=== PATIENT | male | born 1975 | race Caucasian/White ===

== ENCOUNTER 2017-09-29 14:26 | Emergency (ER) | payer MEDICAID, SELFPAY ==
[2017-09-29 14:27] VITALS: BP 140/81; PULSE 94; RESP 20; TEMP 36.9; O2SAT 100; BMI 33.0
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
--- NOTE | 2017-09-29 15:46 | ED.DEP ---
ED Disposition - Plan for ED Patient: Disposition: Home or Assisted Living Chief Complaint: Back Instructions: ED Sprain Strain Lumbar, ED Neck Back Pain General Prescriptions: Naproxen [Naprosyn] 500 mg PO BID PRN #20 tab Cyclobenzaprine [Flexeril] 10 mg PO TID PRN #20 tab PRN Reason: Muscle Spasm Referrals: Nick Hammond III, MD [Primary Care Provider] -
[2017-09-29] MEDS: Naproxen 500 MG Tablet PO (15:48)
[2017-09-29 15:52] VITALS: RESP 16
--- NOTE | 2017-09-29 15:53 | ED.RN ---
REVIEWED D/C INSTRUCTIONS, FOLLOW UP CARE, PRESCRIPTIONS, AND S/S THAT WOULD WARRANT A RETURN TO THE ED WITH PT. PT VERBALIZED AN UNDERSTANDING. AMBULATED OUT OF ED, GAIT STEADY.
== END 2017-09-29 15:53 | disposition home or self-care (01) ==
PROVIDERS: Emergency Provider Emergency Medicine; Family Provider Family Medicine; PCP Family Medicine
DX: S16.1XXA Strain of muscle, fascia and tendon at neck level, initial encounter (principal); S39.012A Strain of muscle, fascia and tendon of lower back, initial encounter; V59.50XA Passenger in pick-up truck or van injured in collision with unspecified motor vehicles in traffic accident, initial encounter; Y93.9 Activity, unspecified; Y92.9 Unspecified place or not applicable; Z72.0 Tobacco use
CPT/HCPCS: 99285

== ENCOUNTER 2018-07-05 00:51 | Emergency (ER) | payer MEDICAID, SELFPAY ==
[2018-07-05 00:53] VITALS: BP 157/88; PULSE 110; RESP 24; TEMP 36.7; O2SAT 98; BMI 29.5
--- NOTE | 2018-07-05 01:12 | EKG12_ITS ---
Test Reason : SUBSTANCE ABUSE Blood Pressure : / mmHG Vent. Rate : 098 BPM Atrial Rate : 098 BPM P-R Int : 128 ms QRS Dur : 090 ms QT Int : 336 ms P-R-T Axes : 077 017 048 degrees QTc Int : 428 ms Normal sinus rhythm Normal ECG Confirmed by IRA REGAN, ZORAN ([id number]), make up editor NORMA RAYGOZA ([id number]) on 07/07/2018 9:08:27 AM Referred By: PÉREZ Confirmed By:ZORAN ROTH MD
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
[2018-07-05 01:42] LABS: Absolute Lymphocyte Count 1.06 X10^3/ul (0.83-4.51); Absolute Neutrophil Count 12.1 X10^3/uL (2.0-7.7); Basophil# 0.03 X10^3/uL; Basophil% 0.2 % (0-1); Eosinophil# 0.03 X10^3/uL; Eosinophils% 0.2 % (0-5); Hematocrit 46.8 % (40-54); Hemoglobin 16.3 g/dl (13.0-16.5); Lymphocyte # 1.06 X10^3/ul (4.0); Lymphocyte % 7.5 % (19-41); Mean Corp Hgb Conc 34.8 g/gl (32-36); Mean Corpuscular Hgb 29.9 pg (27.0-32.0); Mean Corpuscular Volume 85.9 fL (80-94); Monocyte# 0.81 X10^3/uL; Monocyte% 5.7 % (0-10); Neutrophil # 12.14 X10^3/uL (2.7-7.7); Neutrophil % 86.2 % (47-70); POSITIVE COUNT NO; POSITIVE DIFFERENTIAL NO; POSITIVE MORPHOLOGY NO; Platelet Count 201 K/mm3 (150-450); RBC Distribution Width CV 13.9 % (11.6-14.6); RBC Distribution Width SD 43.2 fl (35.1-43.9); Red Blood Count 5.45 M/mm3 (4.6-6.2); White Blood Count 14.1 K/mm3 (4.4-11.0)
[2018-07-05 02:02] LABS: Anion Gap 11 (5-15); BUN 10 mg/dL (7-18); BUN/Creat Ratio 10.1 RATIO (10-20); Calcium,Total 9.3 mg/dL (8.5-10.1); Chloride 105 mmol/L (98-107); Creatinine, Serum 0.99 mg/dL (0.70-1.30); EST Glomerular Filtration Rate 89 mL/min (>60); Est Glom Filt Rate - Afr Amer 107 mL/min (>60); Estimated Creatinine Clearance 104.58 ml/min; Glucose 131 mg/dL (74-106); Potassium 3.7 mmol/L (3.5-5.1); Sodium Level 137 mmol/L (136-145)
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
--- NOTE | 2018-07-05 03:19 | ED.DEP ---
ED Disposition - Plan for ED Patient: Instructions: ED Drug Abuse General Referrals: Care Physician,No Primary [Primary Care Provider] -
[2018-07-05 03:23] VITALS: BP 148/76; RESP 16; O2SAT 99
== END 2018-07-05 03:28 | disposition home or self-care (01) ==
PROVIDERS: Emergency Provider Emergency Medicine
DX: F16.10 Hallucinogen abuse, uncomplicated (principal); R07.89 Other chest pain; R06.02 Shortness of breath
CPT/HCPCS: 71045; 80048; 84484; 85025; 93005; 99285; A4216

== ENCOUNTER → 2019-08-28 08:11 | Outpatient (CLI) | payer MEDICAID, SELFPAY ==
[2019-08-28 08:08] VITALS: BMI 29.5
--- NOTE | 2019-08-28 08:12 | RAD_ITS ---
STUDY: X-RAY - RIGHT HAND REASON FOR EXAM: Male, 43 years old. Pain, history of fracture TECHNIQUE: 3 view(s) of the hand. COMPARISON: None. FINDINGS: A fiberglass splint is noted along the distal ulna wrist and fifth finger to support a recently fractured distal fifth metacarpal. There is dorsal in relation at the fracture site and multiple fracture fragments are noted. The joint spaces are well-preserved. Follow-up is recommended to assure complete osseous union Normal radiocarpal articulation. Normal distal radioulnar joint. Normal visualized carpal bones. Normal carpal articulations Normal carpometacarpal articulation of the thumb. Normal second through fifth carpometacarpal joints. Normal remaining metacarpi. Normal metacarpophalangeal joint of the thumb. Normal interphalangeal joint of the thumb. Normal proximal and distal phalanges of the thumb. Normal metacarpophalangeal joints of the second through fifth fingers. Normal proximal and distal interphalangeal joints of the second through fifth fingers. Normal phalanges of the second through fifth fingers. The soft tissue structures are unremarkable. RAD/Hand Min 3 Views IMPRESSION: Fiberglass splint has been placed to support a recently fractured fifth metacarpal. Follow-up recommended to assure complete osseous union No other demonstrated fracture No joint space abnormality Electronically Signed: Jose Boyd MD at 8:28 EDT , Service support ,
== END ==
PROVIDERS: Referring Provider Physician Assistant; Visit Provider Physician Assistant
DX: M79.641 Pain in right hand (principal)
CPT/HCPCS: 73130

== ENCOUNTER 2019-08-30 09:11 | Day surgery (SDC) | payer MEDICAID, SELFPAY ==
[2019-08-28 08:08] VITALS: BMI 29.5
[2019-08-29 19:23] LABS: Probe Check PASS; Specimen Processing Control PASS
[2019-08-30] VITALS (8 sets, daily range): BP systolic 118–151; BP diastolic 64–88; PULSE 66–87; RESP 16–20; TEMP 36.8–36.9; O2SAT 93–100; BMI 28.4
[2019-08-30] MEDS: Lactated Ringers 1,000 ML 100 ML IV (10:20)
--- NOTE | 2019-08-30 11:40 | RAD_ITS ---
STUDY: X-RAY - RIGHT HAND REASON FOR EXAM: ORIF of fifth metacarpal fracture. TECHNIQUE: 4 intraoperative images of the hand. COMPARISON: Radiographs 08/28/2019. FINDINGS: There is an orthopedic plate and screws transfixing a fifth metacarpal fracture in anatomical alignment and position. 26.1 seconds of fluoroscopy time was used. Electronically Signed: Vazquez Peoples MD at 15:30 EDT Tel , Service support , RAD/Hand Min 3 Views
[2019-08-30] MEDS: Cefazolin 2 GM in 0.9% Normal Saline 100 ML IV (12:07)
--- NOTE | 2019-08-30 12:20 | HP.PCM_ITS ---
History and Physical I have re-examined the patient. There are no clinical changes since date of exam. We discussed the current risk associated COVID-19. While it is understood that there is a community spread of COVID 19 the risk of rosa elena COVID-19 while at [facility] is very low, however, the risk cannot be completely mitigated because of the community spread of the disease. We discussed in detail the risk of exposure to and or potential harm posed by the COVID-19 virus with having a surgery/procedure at this time versus the risk of delaying the surgery/procedure. Is not possible to know either the risk of delaying the surgery procedure or chance of getting an infection with perfect accuracy, but a joint decision was made to proceed at this time with a schedule surgery/procedure as indicated on the consent form. Patient was notified that we will need to comply with any screening or testing [facility] wishes to perform or that surgery may be delayed for any positive results. Intake Vital Signs 08/28/19 BMI 29.5 08/28/19 Height 5 ft 11 in 08/28/19 Weight: 205 lb 08/28/19 BMI 28.5 Intake Visit Reasons: Right hand Is patient in pain?: Yes Pain scale (1-10): 9 Allergies No Known Allergies Allergy (Verified 08/28/19 08:06) [facility] Surgical History (Updated 08/28/19 @ 08:07 by Cici Bunch) H/O cervical spine surgery (Acute) h/o carpal tunnel surgery (Acute) Social History (Updated 08/28/19 @ 08:53 by HELADIO Jay) Smoking Status: Current every day smoker HPI Right hand: Details: Parts of this documentation were recorded by a scribe, this documentation accurately reflects the service provided and the decisions made by me, HELADIO Jay 08/28/19 0804. CASUAL JAK is a 43 year old M here today for right hand fracture. Patient states that he was helping a friend move last Wednesday and fell down the stairs, hitting the wall. Patient went to urgent care the next day due to swelling and pain. Patient was told he has a 4th and 5th metacarpal fracture. He was placed into a splint which he has removed twice. He states that he continues to have swelling. He able to move his fingers. He has numbness into his 5th finger. Patient is taking tylenol for pain. ROS Musc Reports joint pain, Reports joint swelling, Reports numbness, Reports tingling Skin/Breast Reports system reviewed and no additional complaints, except as docu Neuro Yes system reviewed and no additional complaints, except as docu, Yes numbness, Yes tingling Ortho Exam Right Wrist/Hand Skin/Wound: Yes Swelling, Yes Ecchymosis, Yes nail intact, Yes capillary refill normal Sensation: Ulnar: I WRIST: Inspection of the right hand shows some generalized swelling primarily in the extensor surface of the metacarpal region. He does have evident tenderness on palpation of the fracture site. There is very obvious rotational changes of the finger fifth due to the metacarpal fracture. Patient does have intact sensation throughout the extremity and normal distal radial pulses and capillary refill. He does appear to have intact flexion extension of the finger although limited due to pain and swelling. Left Wrist/Hand Skin/Wound: Yes Swelling, Yes Ecchymosis Assessment & Plan Problems 1. Closed nondisplaced fracture of neck of fifth metacarpal bone of right hand, initial encounter S62.366A Plan Patient presents to the office today for follow-up for right hand fracture. Patient states that he fell down the stairs and hit his hand against the wall while he was falling. He went to the urgent care where he was diagnosed with a hand fracture and told to follow-up here. Radiographs taken today show evident fifth metacarpal neck fracture with minimal displacement and evident volar angulation. His physical exam however shows very evident malrotation of the finger. He is neurovascularly intact at this time. At this time we did discuss treatment options which include attempting closed reduction with casting here in office versus surgical intervention. Patient admits that he has taken the splint off several times and is having a lot of pain therefore do not feel that attempting closed reduction in office today is the best step for him. Patient agrees and does not want to have this pushed on today. He would like to proceed with surgical intervention. I did discuss with him that we will review his images tomorrow with the surgeon and will likely try and have this done this week as it is already been 1 week today from his injury. Risks and benefits of surgery were discussed with patient and all of his questions were answered to his satisfaction. Consent was signed in office today. Patient be notified by our office regarding surgery dates. He will not know the time of surgery until the day before. Patient be contacted [facility] surgery department for preanesthesia testing. Patient is to remain in the splint and continue to keep elevated and can ice. Continue with anti-inflammatory for inflammation/pain. Notify of any other concerns or complaints in the meantime. This note was generated with [employer] dictation software. It may contain incorrect words, spelling, and punctuation that were not noted in checking the note before signing. Orders Orders: Hand Min 3 Views Today M79.641 Coding Level of Care Code Off vis,new,level 3 Diagnoses Closed nondisplaced fracture of neck of fifth metacarpal bone of right hand, initial encounter S62.366A ??Encounter type: initial encounter ??Fracture type: closed ??Metacarpal location: neck ??Fracture alignment: nondisplaced
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
--- NOTE | 2019-08-30 12:22 | DCINST_ITS ---
Discharge Diet: No Restrictions - leave splint in place, follow up in 2 weeks, call with concerns Discharge Activity: May Not Drive May shower in (days): 1 Ice area for (Minutes): 20 - Every hour while awake. Weight Bearing Status: Weight bearing as tolerated Keep extremity elevated above heart level: Operative Extremity Call your doctor if your incision/area has: Continuous Slow Oozing, Sudden Increased Bleeding, Increased Pain/ Swelling, Increased Redness, Foul Smelling Discharge Call your doctor if you observe: Fever of 101 or Higher, Coldness, Increased Pain, Numbness or Tingling, Change in Color, Calf discomfort Allergies/Adverse Reactions: Allergies No Known Allergies Allergy (Verified 08/30/19 09:34) Medications to take at Discharge Oxycodone HCl/Acetaminophen [Percocet 5/325] 1 - 2 tab PO Q6H PRN PRN 5 Days #28 tab 08/30/19 The following prescriptions were given: Oxycodone HCl/Acetaminophen [Percocet 5/325] 1 - 2 tab PO Q6H PRN PRN 5 Days #28 tab PRN Reason: Pain Transmission Status: Received by [facility] Primary Care Physician: Nick Hammond III, MD [Primary Care Provider] - Test Results: Test results from this visit will be discussed in further detail at your follow- up appointment, if applicable. Please Follow Up With: Charmaine Grace, - [phone]
[2019-08-30] MEDS: Mupirocin Ointment 22gm Tube 1 APPLIC (12:34)
== END 2019-08-30 16:10 | disposition home or self-care (01) ==
LOC: SDC 09:13 → AC 09:14
PROVIDERS: Anesthesiology; PCP Family Medicine; Referring Provider Orthopaedic Surgery; Visit Provider Orthopaedic Surgery
PROC: (CPT 26615; principal; 2019-08-30 11:25)
DX: S62.366A Nondisplaced fracture of neck of fifth metacarpal bone, right hand, initial encounter for closed fracture (principal); Z11.59 Encounter for screening for other viral diseases; W10.9XXA Fall (on) (from) unspecified stairs and steps, initial encounter; Y93.9 Activity, unspecified; Y92.9 Unspecified place or not applicable
CPT/HCPCS: 01830; 26615; 73130; 76000; 87635; C1713; G2023; J7120; J2405; U0003

== ENCOUNTER → 2019-09-12 13:40 | Outpatient (CLI) | payer MEDICAID, SELFPAY ==
[2019-09-12 13:30] VITALS: BMI 28.4
--- NOTE | 2019-09-12 13:40 | RAD_ITS ---
STUDY: X-RAY - RIGHT HAND REASON FOR EXAM: Follow-up right fifth metacarpal fracture. TECHNIQUE: 3 view(s) of the hand. COMPARISON: Intraoperative images 08/30/2019. FINDINGS: Normal radiocarpal articulation. Normal distal radioulnar joint. Normal visualized carpal bones. Normal carpal articulations Normal carpometacarpal articulation of the thumb. Normal second through fifth carpometacarpal joints. There is an orthopedic plate and screws transfixing a fifth metacarpal fracture in anatomical alignment and position. Normal metacarpophalangeal joint of the thumb. Normal interphalangeal joint of the thumb. Normal proximal and distal phalanges of the thumb. Normal metacarpophalangeal joints of the second through fifth fingers. Normal proximal and distal interphalangeal joints of the second through fifth fingers. Normal phalanges of the second through fifth fingers. There is soft tissue swelling at the proximal lateral aspect of the hand. RAD/Hand Min 3 Views IMPRESSION: No interval change of ORIF of fifth metacarpal fracture. Electronically Signed: Vazquez Peoples MD at 10:40 EDT Tel , Service support ,
== END ==
PROVIDERS: PCP Family Medicine; Referring Provider Orthopaedic Surgery; Visit Provider Orthopaedic Surgery
DX: S62.306A Unspecified fracture of fifth metacarpal bone, right hand, initial encounter for closed fracture (principal); X58.XXXA Exposure to other specified factors, initial encounter
CPT/HCPCS: 73130

== ENCOUNTER → 2019-09-26 14:29 | Outpatient (CLI) | payer MEDICAID, SELFPAY ==
[2019-09-12 13:30] VITALS: BMI 28.4
--- NOTE | 2019-09-26 14:29 | RAD_ITS ---
STUDY: X-RAY - RIGHT HAND REASON FOR EXAM: Male, 44 years old. Persistent pain, known fracture TECHNIQUE: 3 view(s) of the hand. COMPARISON: 09/12/2019 FINDINGS: Normal radiocarpal articulation. Normal distal radioulnar joint. Normal visualized carpal bones. Normal carpal articulations Normal carpometacarpal articulation of the thumb. Normal second through fifth carpometacarpal joints. No significant interval change in the appearance of a previously described, surgically reduced fracture in the distal fifth metacarpal. Little significant healing has occurred. Alignment remains anatomic. Normal metacarpophalangeal joint of the thumb. Normal interphalangeal joint of the thumb. Normal proximal and distal phalanges of the thumb. Normal metacarpophalangeal joints of the second through fifth fingers. Normal proximal and distal interphalangeal joints of the second through fifth fingers. Normal phalanges of the second through fifth fingers. The soft tissue structures are unremarkable. RAD/Hand Min 3 Views IMPRESSION: No interval change Electronically Signed: Jose Boyd MD at 15:34 EDT , Service support ,
== END ==
PROVIDERS: PCP Family Medicine; Referring Provider Physician Assistant; Visit Provider Physician Assistant
DX: Z47.89 Encounter for other orthopedic aftercare (principal)
CPT/HCPCS: 73130

== ENCOUNTER → 2019-10-12 13:37 | Outpatient (CLI) | payer MEDICAID, SELFPAY ==
[2019-09-26 14:45] VITALS: BMI 28.4
--- NOTE | 2019-10-12 13:38 | RAD_ITS ---
STUDY: X-RAY - RIGHT HAND REASON FOR EXAM: Male, 44 years old. RECENT SURGERY- THEN HAD HAND SMASHED AT [place] TECHNIQUE: 3 view(s) of the hand. COMPARISON: Prior left hand radiographs of 08/27/2019 FINDINGS: Normal radiocarpal articulation. Normal distal radioulnar joint. Normal visualized carpal bones. Normal carpal articulations Normal carpometacarpal articulation of the thumb. Normal second through fifth carpometacarpal joints. Stable alignment of the comminuted fracture of the mid and distal fifth metacarpal repaired with plate and screw hardware. Increased callus at the fracture site. Normal metacarpophalangeal joint of the thumb. Normal interphalangeal joint of the thumb. Normal proximal and distal phalanges of the thumb. Normal metacarpophalangeal joints of the second through fifth fingers. Normal proximal and distal interphalangeal joints of the second through fifth fingers. Normal phalanges of the second through fifth fingers. The soft tissue structures are unremarkable. RAD/Hand Min 3 Views IMPRESSION: Healing well aligned comminuted fracture of the mid and distal fifth metacarpal repaired with plate and screw hardware. No untoward bone, joint or hardware findings. Electronically Signed: Pauly Brown MD at 19:16 EDT , Service support ,
== END ==
PROVIDERS: PCP Family Medicine; Referring Provider Physician Assistant; Visit Provider Physician Assistant
DX: Z47.89 Encounter for other orthopedic aftercare (principal)
CPT/HCPCS: 73130

== ENCOUNTER 2019-10-18 13:30 | Outpatient (RCR) | payer MEDICAID, SELFPAY ==
[2019-09-12 13:30] VITALS: BMI 28.4
--- NOTE | 2019-09-20 16:47 | HP.OTEVAL ---
Patient's Visit Information CASUAL Jameson BENEDICT is a 44 year old M, referred to Occupational Therapy by Dr. Charmaine Grace DO, with a diagnosis of s/p ORIF 5th metacarpal surgery. Date of Evaluation: 09/20/19 Occupational Therapist: Lakia Dugan - Subjective Pt reports 3 weeks post op today. Pt had follow up with Dr Grace last week and next follow up in September 26. Pt wore brace upon arrival. Pt reports it's possible he will have to undergo another surgery to correct the plate in is hand as it is sliding forward causing pinky finger to curl at rest. - ADLs Dressing: Button shirt Comments: wear Velcro shoes Fasteners: Buttons, Zippers Comments: Difficulty with these Eating: Cut food Comments: Unable with R hand- has been using L hand Comments: Bathes in tub seated down in Comments: No concerns Comments: Has been using L hand Comments: Spouse has been handling these- otherwise uses L hand Comments: Spouse does these Comments: Neighbor takes care of yardwork - Pain R pinky/ulnar side of hand 5 Pain Intensity Range: 10 - ROM Wrist: R ext 40 degrees, 45 degrees flex; L ext 50 degrees, 60 degrees flex MP: R 5th digit 40 degrees flexion PIP: R 5th digit 95 degrees flexion DIP: R 5th digit 90 flexion to 15 degrees from extension ROM Comments: BUE AROM WNL shoulder/elbow - Strength Porcelain Technician: R 18#, L 32# Lateral Pinch: R 16#, L 25# Tripod Pinch: R 9#, L 22# Tip-to-Tip Pinch: R 10#, L 22# Strength Comments: BUE grossly assessed 4/5. - Quick DASH-Disab of Arm,Shoulder& Hand Quick DASH Score: 75.0000 - Goals Goal:: Pt will be able to increase timber inspector/pinch strength by 5-10# in order to increase functional strength and IND with ADL tasks. Goal:: Pt will demo an increase in AROM of his R wrist ext/flex and 5th digit of MCP, PIP, DIP joints to increase his flexibility and to increase his IND with self care tasks. Goal:: Pt will report pain less than 3/10 with ADLs and PRE by d/c Goal:: Pt will be able to fasten zippers and buttons on clothing with use of AE PRN to increase IND with tasks by d/c. Goal:: Pt will be educated on energy conservation techniques prior to d/c for increased knowledge and safety when completing ADL tasks. Goal:: Pt will be able to hold/grasp utensils to feed self without dropping with R hand with use of AE PRN to increase IND with tasks - Rehabilitation General Assessment: Assessed ROM, timber inspector and strength this date. See details below. Rehabilitation Potential: Good - Anticipated Interventions A/AAROM/PROM, Strengthening, Scar Care, Modalities, Joint Protection/Energy Conservation, Fine Motor Coord/Gabriel, ADL Training, Education re Diagnosis, Education re Skin Care and Precautions, Education re Self Massage Techniques, Caregiver Training, Home Program - Visit Plan Frequency: 1-2x /Week Duration: 4-6 Weeks General Plan: Increase ROM, timber inspector, strength and functional use of R hand TEXT: Thank you for the opportunity to evaluate your patient. For Medicare and Medicare HMO plans, please review the plan of care and approve it. It will need to be FAXED BACK to us at [phone] for Medicare purposes. Please let me know if there are questions or concerns regarding this plan of care. Physician Signature: Date:
--- NOTE | 2020-02-07 08:19 | HP.OT.NRP ---
ALCIRA BENEDICT was seen in my office for initial evaluation on 09/20/19. The following Plan of Care was established for this patient: Initial Frequency: 1-2x /Week Initial Duration: 4-6 Weeks Plan: cont POC Anticipated Interventions: A/AAROM/PROM, Strengthening, Scar Care, Modalities, Joint Protection/Energy Conservation, Fine Motor Coord/Gabriel, ADL Training, Education re Diagnosis, Education re Skin Care and Precautions, Education re Self Massage Techniques, Caregiver Training, Home Program This patient was last seen in our office 10/18/19. Pertinent comments regarding their Occupational therapy will appear below: Pt was seen for 4 OT visits. pt cancelled last apt and has not rescheduled and due to time lapse in services pt d/c at this time. At this point I will be discontinuing this patient from occupational therapy. I would be happy to see this patient again in the future if found appropriate by the physician. Thank you! Sil Phillip, OTR/L, CHT
== END 2019-10-18 19:00 | disposition home or self-care (01) ==
LOC: OT 13:30
PROVIDERS: PCP Family Medicine; Referring Provider Orthopaedic Surgery; Visit Provider Orthopaedic Surgery
DX: Z98.890 Other specified postprocedural states (principal)
CPT/HCPCS: 97140; 97166; 97530

== ENCOUNTER 2020-01-31 11:17 | Day surgery (SDC) | payer MEDICAID, SELFPAY ==
[2019-11-10 09:29] VITALS: BMI 28.4
--- NOTE | 2020-01-31 01:00 | HP_ITS ---
I have re-examined the patient. There are no clinical changes since date of exam. Intake Intake Visit Reasons: RIGHT WRIST Is patient in pain?: Yes Allergies No Known Allergies Allergy (Verified 01/15/20 14:02) [facility] Surgical History (Updated 08/30/19 @ 12:[address] Charmaine Grace, DO) H/O cervical spine surgery (Acute) h/o carpal tunnel surgery (Acute) Social History (Updated 01/15/20 @ 16:02 by Arnav LEIJA, PA) Smoking Status: Current every day smoker HPI RIGHT WRIST: Details: Parts of this documentation were recorded by a scribe, this documentation accurately reflects the service provided and the decisions made by me, HELADIO Jay 01/15/20 [id number]. ALCIRA BENEDICT is a 44 year old M here today for s/p orif right fifth metacarpal DOS 08/30/19 - in pain feels like plate has moved in hand. Patient states that he was pouring a pot of coffee about 3-4 days ago, and he felt a pop and sharp pain. Since then he feels like the plate has shifted. He has increased pain currently and complains of tightness within his hand. Patient has swelling in his hand. He denies any recent xrays. [place] [facility] [place] pain, Reports joint swelling, Reports limited joint movement, Reports stiffness Skin/Breast Reports system reviewed and no additional complaints, except as docu Neuro Yes system reviewed and no additional complaints, except as docu Ortho Exam Right Wrist/Hand Skin/Wound: Yes healed, No Swelling, No Ecchymosis, Yes nail intact, Yes capillary refill normal Right Wrist: Yes ROM-Extension 0-60 and ROM-Flexion 0-80; no TTP Fracture site Sensation: Radial: I, Ulnar: I, Median: I WRIST: Inspection of the right hand shows no acute abnormalities. His incision has healed well with minimal scarring. There is no signs of inflammation or infection. Patient has no tenderness around the incision site. He is a little tenderness over the very distal aspect of the plate. He does have normal sensation throughout the extremity normal distal radial pulses. His range of motion of his fifth digit is very good he has full flexion in the DIP and the MCP joint and has almost full extension (lacking less than 10 degrees). Left Wrist/Hand Skin/Wound: No Swelling, No Ecchymosis Assessment & Plan Problems 1. Orthopedic aftercare Z47.89 Plan Patient presents the office today approximately 6 months out from ORIF of the right fifth metacarpal. Patient states that he has noticed that the plate is starting to feel like is rubbing more causing more discomfort. He states that his range of motion he feels is almost back to normal and that if the plate is removed he will feel a lot better. The plan was to wait approximately 6 months before removal of hardware and therefore at this point will discuss with surgeon and if okay will proceed with hardware removal of right fifth metacarpal. Risks and benefits of the surgery were discussed with patient including blood loss, blood clot, infection, neurovascular injury, failure of procedure, loss of limb loss of life from anesthesia. Patient is aware of these risks and consent was signed in office today. Patient given antimicrobial scrub to use the night before the morning of his surgery. He will be contacted by our office to set up the surgery date and then will be contacted by surgery partner for preanesthesia/surgical testing. Patient will also receive a Covid test approximate 72 hours prior to procedure. Patient has no other questions at this time. We will see patient postop. This note was generated with [employer] dictation software. It may contain incorrect words, spelling, and punctuation that were not noted in checking the note before signing. Orders Orders: Hand Min 3 Views Today M79.641 Coding Level of Care Code Off vis,est,level 3 Diagnoses Orthopedic aftercare Z47.89
[2020-01-31 11:56] VITALS: BP 128/65; PULSE 63; RESP 18; TEMP 36.8; O2SAT 97; BMI 30.2
[2020-01-31] MEDS: Lactated Ringers 1,000 ML 100 ML IV (12:11)
[2020-01-31] MEDS: Cefazolin 2 GM in 0.9% Normal Saline 100 ML IV (13:27)
--- NOTE | 2020-01-31 13:30 | RAD_ITS ---
STUDY: X-RAY - RIGHT HAND REASON FOR EXAM: Male, 44 years old. Removal of hardware. TECHNIQUE: 3 intraoperative digital documentation view(s) of the hand. COMPARISON: 01/15/2020 FINDINGS: 7 seconds of exposure time were utilized for a total DAP of 0.7933 cGy/cm2 and a Total Air Kerma of 0.0472 mGy. 3 digital documentation images show hardware removal complications. RAD/Hand Min 3 Views IMPRESSION: Intraoperative digital documentation images. Electronically Signed: Ganesh Lucero MD at 11:54 EST , Service support ,
--- NOTE | 2020-01-31 13:34 | DCINST_ITS ---
Discharge Diet: No Restrictions - leave splint in place, follow up in 2 weeks, call with concerns Discharge Activity: May Not Drive May shower in (days): 1 Ice area for (Minutes): 20 - Every hour while awake. Weight Bearing Status: Weight bearing as tolerated Keep extremity elevated above heart level: Operative Extremity Call your doctor if your incision/area has: Continuous Slow Oozing, Sudden Increased Bleeding, Increased Pain/ Swelling, Increased Redness, Foul Smelling Discharge Call your doctor if you observe: Fever of 101 or Higher, Coldness, Increased Pain, Numbness or Tingling, Change in Color, Calf discomfort Allergies/Adverse Reactions: Allergies No Known Allergies Allergy (Verified 01/31/20 11:55) Medications to take at Discharge acetaminophen 650 mg tablet,extended release 650 mg PO Q12H PRN #30 tab 09/14/19 ibuprofen 800 mg tablet 800 mg PO TID #60 tab 09/14/19 tramadol 50 mg tablet 50 mg PO Q6H PRN #20 tab 09/27/19 Risperidone 1 mg PO QHS 01/23/20 Ondansetron [Zofran] 8 mg PO Q8H PRN PRN #20 tab 01/31/20 Oxycodone HCl/Acetaminophen [Percocet 5/325] 1 - 2 tablet PO Q6H PRN PRN 5 Days #28 tablet 01/31/20 The following prescriptions were given: Oxycodone HCl/Acetaminophen [Percocet 5/325] 1 - 2 tablet PO Q6H PRN PRN 5 Days #28 tablet PRN Reason: Pain Transmission Status: Sent to [facility] Ondansetron [Zofran] 8 mg PO Q8H PRN PRN #20 tab PRN Reason: Nausea Transmission Status: Pending to [facility] Primary Care Physician: Nick Hammond III, MD [Primary Care Provider] - Test Results: Test results from this visit will be discussed in further detail at your follow- up appointment, if applicable. Please Follow Up With: Charmaine Grace, DO - [phone]
--- NOTE | 2020-01-31 13:35 | OP.PCM_ITS ---
Report of Operation Date of Procedure: 01/31/20 Pre-Operative Diagnosis: right fifth metacarpal painful hardware, tendon a dhesions Post-Operative Diagnosis: same Surgery/Procedure Performed:: right hand removal of hardware, tenolysis of fifth finger extensor tendons printing supplies sales representative: Arnav Kelley Type of Anesthesia:: General Estimated Blood Loss (mL): none Fluids Replaced: 1000ml lr Description of Procedure: Preop note Patient a 44-year-old male with known ORIF of his right fifth metacarpal. He is having some pain over the plate and would like the and is having little bit of tendon scarring on exam. Patient would like the plate removed as it is quite painful to him if he hits it. Risk benefits alternatives were discussed with patient. Risk empirically but not limited to blood loss, blood clot, infection, neurovascular, failure procedure, loss of life and loss of limb. Patient is aware of like proceed with right hand removal of hardware for repair as indicated tenolysis Operative note Patient seen and examined preoperative holding area. Right hand was marked. Patient brought to the operating placed supine on the operating table. Signed, anesthesia, antibiotics were ministered. The right hand was prepped and draped usual sterile technique with a tract around his upper arm. All bony promises well-padded SCDs placed on his bilateral lower extremity. We then marked out our incision for our removal of hardware at the site of his previous incision. Timeout performed the right arm was elevated segmented tourniquet trigger was raised to a pressure of 250 torr. We then used a 15 blade to cut through skin dissect down tenotomies through the extensor tendons which were quite adhered and adhesed to the plate. We then remove these the adhesions and there entirely circumferentially around the tendons making sure to protect all neurovascular structures at all times. We then were able to visualize the plate we gently debrided any bony debris off of the plate removed all of the screws and the plate in sequential fashion. We then debrided the holes. There was no signs of infection there is no patient Rebetol fluoroscopy images he had a well-healed fifth metacarpal bone. The incision with copious was irrigated copious nonsterile saline. Please note that we used fluoroscopy to confirm that we removed all hardware from his hand. Again no signs of infection, well-healed on imaging in AP and lateral and oblique planes as well. We closed the skin with 4-0 Vicryl in a running 4 Monocryl sterile dressings were applied and a ulnar gutter splint was applied to his right upper extremity. Patient taught procedure well no complication child recovery room in stable condition. Please note the prior the entry was deflated after sterile dressings were applied. Postoperative note Percocet Nonweightbearing right arm Follow-up in 2 weeks Call with increased pain numbness tingling further issues arise Take Intra-Op pictures after all the hardware was removed as well as fluoroscopy images This note was generated with [employer] dictation software. It may contain incorrect words, spelling, and punctuation that were not noted in checking the note before signing.
[2020-01-31] MEDS: Mupirocin Ointment 22gm Tube 1 APPLIC (14:30)
[2020-01-31 14:39] VITALS: BP 128/64; BP 141/87; PULSE 82; RESP 16; TEMP 36.4; O2SAT 100
[2020-01-31 14:50] VITALS: BP 128/64; BP 136/82; PULSE 79; RESP 18; O2SAT 100
[2020-01-31 15:00] VITALS: BP 124/80; BP 128/64; PULSE 71; RESP 18; O2SAT 100
[2020-01-31 15:09] VITALS: BP 125/74; BP 128/64; PULSE 75; RESP 18; TEMP 36.9; O2SAT 100
[2020-01-31 15:35] VITALS: BP 128/64; BP 137/67; PULSE 73; RESP 16; TEMP 36.9; O2SAT 98
== END 2020-01-31 15:45 | disposition home or self-care (01) ==
LOC: SDC 11:18 → AC 11:19
PROVIDERS: PCP Family Medicine; Referring Provider Orthopaedic Surgery; Visit Provider Orthopaedic Surgery
PROC: (CPT 20680; principal; 2020-01-31 13:15)
DX: T84.84XA Pain due to internal orthopedic prosthetic devices, implants and grafts, initial encounter (principal); Y83.1 Surgical operation with implant of artificial internal device as the cause of abnormal reaction of the patient, or of later complication, without mention of misadventure at the time of the procedure; F12.90 Cannabis use, unspecified, uncomplicated; F31.9 Bipolar disorder, unspecified; F17.210 Nicotine dependence, cigarettes, uncomplicated; Z20.828 Contact with and (suspected) exposure to other viral communicable diseases
CPT/HCPCS: 01830; 20680; 73130; 76000; 87426; C9803; J7120; J2405

== ENCOUNTER 2020-04-27 19:02 | Emergency (ER) | payer MEDICAID, SELFPAY ==
[2020-04-27 19:03] VITALS: BP 126/79; PULSE 84; RESP 18; TEMP 36.4; O2SAT 98; BMI 29.0
--- NOTE | 2020-04-27 19:33 | ED.VISSUMM ---
- ER Visit Summary Date of Service: 04/27/20 Chief Complaint: Suicidal ideation History of Present Illness: The patient is a 44 M presenting with police for suicidal ideation. Patient states he was upset and very stressed out. He made comments to his that he wanted to end his life. He has had multiple family members over the last several years. He found his mother 8 years ago. He states he has had problems since then. His son committed suicide in 2019. He has a remote history of suicide attempt. Per police, his stated that he attempted to put a knife to his throat last week so she had to remove all the knives from the house. Per police, fears that his episodes are going to lead to him committing violent acts towards himself, her, or others. Patient admits to marijuana use, denies other drug use. Physical Examination: Vitals are stable. Patient is afebrile. Alert no acute distress. HEENT exam is unremarkable. Neck is supple. Lungs are clear and equal bilaterally. Heart is regular rate and rhythm. Abdomen is soft nontender nondistended. Extremities are unremarkable. Skin is warm and dry. Depressed affect, suicidal ideation Remainder of exam is unremarkable. Emergency Department Course and Treatment: CBC, chemistries unremarkable. Tox positive for cannabinoids. Alcohol negative. Covid negative. Discussed with counseling center for evaluation. Disposition: Per counseling center Impression: Suicidal ideation This note was generated with [employer] dictation software. It may contain incorrect words, spelling, and punctuation that were not noted in review of the chart prior to signing ED Disposition - Plan for ED Patient: Referrals: Nick Hammond III, MD [Primary Care Provider] -
[2020-04-27 19:50] LABS: Absolute Lymphocyte Count 1.96 X10^3/uL (0.83-4.51); Absolute Neutrophil Count 3.3 X10^3/uL (2.0-7.7); Basophil# 0.06 X10^3/uL; Eosinophils% 1.6 % (0-5); Hemoglobin 15.7 g/dL (13.0-16.5); Lymphocyte # 1.96 X10^3/ul (4.0); Lymphocyte % 31.9 % (19-41); Mean Corp Hgb Conc 34.1 g/dL (32-36); Mean Corpuscular Hgb 30.3 pg (27.0-32.0); Mean Corpuscular Volume 88.6 fL (80-94); Mean Platelet Vol. 11.3 fl (6.2-12.0); Monocyte# 0.75 X10^3/uL; Monocyte% 12.2 % (0-10); NRBC Flagged by Analyzer 0 % (0-5); Neutrophil # 3.27 X10^3/uL (2.7-7.7); Neutrophil % 53.1 % (47-70); Platelet Count 212 K/mm3 (150-450); RBC Distribution Width CV 13.4 % (11.6-14.6); RBC Distribution Width SD 43.6 fl (35.1-43.9); Red Blood Count 5.19 M/mm3 (4.6-6.2); White Blood Count 6.2 K/mm3 (4.4-11.0)
--- NOTE | 2020-04-27 19:53 | NURSING ---
called in with update on plan.
[2020-04-27 20:05] LABS: Anion Gap 4 (5-15); BUN 16 mg/dL (7-18); BUN/Creat Ratio 19.3 RATIO (10-20); Calcium,Total 8.7 mg/dL (8.5-10.1); Chloride 110 mmol/L (98-107); Creatinine, Serum 0.83 mg/dL (0.70-1.30); EST Glomerular Filtration Rate 107 mL/min (>60); Est Glom Filt Rate - Afr Amer 130 mL/min (>60); Estimated Creatinine Clearance 122.22 ml/min; Glucose 106 mg/dL (74-106); Potassium 3.7 mmol/L (3.5-5.1); Sodium Level 141 mmol/L (136-145)
[2020-04-27 20:07] LABS: Amphetamine Urine VISTA NEGATIVE (<1000 ng/mL); Barbiturate Urine VISTA NEGATIVE (< 200 ng/mL); Benzodiazepine Urine VISTA NEGATIVE (< 200 ng/mL); Cocaine Urine VISTA NEGATIVE (< 300 ng/mL); Ecstacy Urine VISTA NEGATIVE (< 500 ng/mL); Methadone Urine VISTA NEGATIVE (< 300 ng/mL); PCP Urine VISTA NEGATIVE (< 25 ng/mL); THC Urine VISTA POSITIVE (< 50 ng/mL); Vista UDS pH Range 7
[2020-04-27 20:08] VITALS: RESP 17
--- NOTE | 2020-04-27 20:29 | NURSING ---
called crisis at 2028
[2020-04-27 21:00] VITALS: RESP 17
[2020-04-27 22:00] VITALS: RESP 16
[2020-04-27 23:00] VITALS: RESP 17
[2020-04-28] VITALS: RESP 17
[2020-04-28 01:00] VITALS: RESP 18
[2020-04-28 02:00] VITALS: BP 146/89; PULSE 81; RESP 18; O2SAT 98
--- NOTE | 2020-04-28 02:14 | NURSING ---
updated on plan
[2020-04-28 03:09] VITALS: O2SAT 99
== END 2020-04-28 03:10 ==
PROVIDERS: Emergency Provider Emergency Medicine; PCP Family Medicine
DX: R45.851 Suicidal ideations (principal); Z91.5 Personal history of self-harm
CPT/HCPCS: 80048; 80307; 82077; 85025; 87426; 99285

== ENCOUNTER 2024-02-13 23:07 | Emergency (ER) | payer MEDICAID, SELFPAY ==
[2024-02-13 23:07] VITALS: BP 134/87; PULSE 92; RESP 18; TEMP 36.8; O2SAT 98; BMI 29.0
--- NOTE | 2024-02-14 01:57 | EDS_ITS ---
HPI History of Present Illness Chief Complaint: Mental Health Informant: patient, EMS and police/shake backboard notcher Narrative Narrative: Patient is a 48-year-old male with past medical history of bipolar disorder schizoaffective disorder as well as restless leg syndrome. This evening he got into an argument with his and during this time stated that he wanted to hurt himself. Secondary to this statement his called 911 and police showed up at the residence. The patient informed police that he did state what his is saying but that it was done out of anger and he has no homicidal or suicidal ideation at this time. He also reports that he believes he blacked out because he remembers he was inside arguing and then was suddenly outside and he does not remember how he got there. He states he was informed that his medications may need adjusted and therefore was advised to come to the hospital for evaluation. Secondary to this recommendation patient presents to the emergency department 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 Cervical spine fracture Epiglottitis Neuropathy IBS (irritable bowel syndrome) Hearing problem COPD (chronic obstructive pulmonary disease) Carpal tunnel syndrome Back problem Arthritis Seasonal allergies Home Medications ?Medication ?Instructions ?Recorded ?Last Taken ?Type famotidine 20 mg tablet 20 mg PO QHS 01/12/24 Unknown History hydroxyzine HCl 25 mg tablet 25 mg PO TID PRN anxiety #60 tabs 01/12/24 Unknown Rx ropinirole 1 mg tablet 1 mg PO QHS 01/12/24 Unknown History acetaminophen 500 mg tablet 1,000 mg PO Q6H PRN 02/09/24 Unknown History (Tylenol Extra Strength) ibuprofen 200 mg tablet 800 mg PO Q6H PRN 02/09/24 Unknown History lurasidone 40 mg tablet 40 mg PO QPM #30 tabs 02/09/24 Unknown Rx trazodone 50 mg tablet 50 mg PO QHS #30 tabs 02/09/24 Unknown Rx Allergy/AdvReac Type Severity Reaction Status Date / Time No Known Allergies Allergy Verified 02/13/24 23:08 Family History Other Alcoholism Anxiety Arthritis Asthma CVA (cerebral vascular accident) Heart disease Hyperlipidemia Hypertension Mental disorder Myocardial infarction Psychiatric care Thrombosis Surgical History History of right knee surgery History of removal of testicle History of foot surgery H/O cervical spine surgery h/o carpal tunnel surgery Social History Smoking Status: Current every day smoker tobacco type: cigarettes alcohol intake: never substance use type: marijuana and other details: occasional use ROS ROS ED Constitutional Constitutional ED: Denies chills or fever(s) Eyes Eyes: Denies change in vision ENT ENT ED: Denies sore throat Cardiovascular Cardiovascular: Denies chest pain Respiratory/Chest Respiratory/Chest: Denies cough or dyspnea Gastrointestinal Gastrointestinal: Denies abdominal pain, diarrhea, nausea or vomiting Genitourinary Genitourinary ED: Denies dysuria Musculoskeletal Musculoskeletal: Denies myalgias Integumentary Denies rash Neurologic Neurologic: Denies headache(s) Psychiatric Psychiatric: Denies suicidal ideation or suicidal thoughts Hematologic/Lymphatic Hematologic/Lymphatic: Denies easy bleeding or easy bruising EXAM Physical Exam Const Vital Signs: 02/13/24 23:07 02/14/24 02:03 Temperature 98.3 F 98.3 F Temperature Source Oral Pulse Rate 92 92 Respiratory Rate 18 18 Blood Pressure 134/87 H 126/87 H Blood Pressure Mean 102 100 Pulse Ox 98 98 Oxygen Delivery Method Room Air Positive well nourished and well developed General Appearance ED: well developed; Negative for pallor HEENT HEENT Narrative: Normocephalic atraumatic Eyes PERRL and EOMs intact bilaterally General Eye ED: Negative for scleral icterus Neck supple Neck Narrative: No nuchal rigidity or meningeal signs Resp normal respiratory effort and clear to auscultation bilaterally Cardio regular rate and regular rhythm GI normal to inspection, nondistended, normoactive bowel sounds, non-tender, non- distended and no masses Auscultation: normoactive bowel sounds Palpation: soft Extremity normal to inspection Neuro oriented x3, CN's II-XII intact bilaterally and no sensory deficits noted Sensorium / Orientation: alert Motor Exam: strength 5/5 throughout Psych Psych Narrative: Patient has a flat affect but denies homicidal or suicidal ideation Skin no rashes or lesions noted and no wounds General Skin Exam: Negative for jaundice or pallor MDM MDM MDM Narrative Medical decision making narrative: Patient arrived to ER mildly hypertensive but otherwise with stable vitals. He reported getting into an argument this evening and stating out of anger that he wanted to hurt himself. He states he does not have homicidal or suicidal ideation at this time and does admit that saying that statement was wrong but reiterates it was simply done out of anger. He states the only reason he is at the hospital is because police recommended he talk someone about potential medication adjustment. The patient's medications appear appropriate for his conditions and he is taking them as directed. He denies any overdose or illicit ingestion or self-harm attempt and therefore there is no need for a psychiatric workup or potential evaluation for deliberate overdose. Crisis center did talk to the patient as it was felt that he would benefit from outpatient counseling and potentially outpatient medication adjustment. However at this time he is not homicidal he is not suicidal he is acting appropriately in the ER and is not showing bouts of eva or negative effects of schizophrenia. Therefore there is no need for pink slip or placement in a psychiatric center and the patient can be discharged and follow-up as an outpatient History & Record Review Discussion w/independent historian: Patient Discharge Plan Triage Chief Complaint: Mental Health ED Provider: Hector Giordano Dx/Rx/DC Orders Clinical Impression: Bipolar 2 disorder, Schizoaffective disorder, COPD (chronic obstructive pulmonary disease) Instructions: Understanding Bipolar Disorder, ED Schizoaffective Disorder Prescriptions: No Action ropinirole 1 mg tablet 1 mg PO QHS famotidine 20 mg tablet 20 mg PO QHS hydroxyzine HCl 25 mg tablet 25 mg PO TID PRN (Reason: anxiety) Qty: 60 0RF acetaminophen [Tylenol Extra Strength] 500 mg tablet 1,000 mg PO Q6H PRN ibuprofen 200 mg tablet 800 mg PO Q6H PRN lurasidone 40 mg tablet 40 mg PO QPM Qty: 30 0RF Rx Instructions: must administer with food (at least 350 calories) trazodone 50 mg tablet 50 mg PO QHS Qty: 30 1RF Primary Care Provider: Judd Peterson Referrals: Judd Peterson DO [Primary Care Provider] - Activity Restrictions/Additional Instructions: Please continue all of your home medications as directed by your doctor and follow-up with crisis center as an outpatient to discuss potential medication adjustment or counseling. Return to the ER should you have any further concern Print Language: Prydeinig Disposition Disposition: Home, Self Care Discharge Date/Time: 02/14/24 02:03
[2024-02-14 02:03] VITALS: BP 126/87; PULSE 92; RESP 18; TEMP 36.8; O2SAT 98
== END 2024-02-14 02:03 | disposition home or self-care (01) ==
PROVIDERS: Emergency Provider Emergency Medicine; PCP Family Medicine; Visit Provider Emergency Medicine
DX: F31.81 Bipolar II disorder (principal); F25.9 Schizoaffective disorder, unspecified; J44.9 Chronic obstructive pulmonary disease, unspecified
CPT/HCPCS: 99284